=== PATIENT | male | born 1945 | race African-American/Black ===

== ENCOUNTER 2024-06-22 17:38 | Inpatient (IN) | payer MEDICARE, OTHER ==
[~2024-06-22] VITALS: Ht 180.3 cm; Wt 83.3 kg
[2024-06-22 18:53] LABS: BASOPHILS % (AUTO) 0.5 % (0.0-2.0); EOSINOPHILS # (AUTO) 0.2 K/uL (0.0-0.7); EOSINOPHILS % (AUTO) 3.3 % (0.0-6.0); HEMATOCRIT 41 % (39-51); HEMOGLOBIN 13.3 g/dL (13.5-17.5); LYMPHOCYTES % (AUTO) 19.3 % (20.0-44.0); MEAN CORPUSCULAR HEMOGLOBIN 27 PG (26.0-33.0); MEAN CORPUSCULAR HGB CONC 32 g/dl (31.0-36.0); MEAN CORPUSCULAR VOLUME 84 fL (80-96); MONOCYTES # (AUTO) 0.8 K/uL (0.1-1.30); NEUTROPHILS # (AUTO) 3.1 K/uL (1.8-8.9); NEUTROPHILS % (AUTO) 61.9 % (43.0-81.0); PLATELET COUNT (AUTO) 188 K/uL (150-450); RED BLOOD CELL COUNT(AUTO) 4.89 MIL/uL (4.5-6.0); RED CELL DISTRIBUTION WIDTH 16.3 % (11.5-15.0); WHITE BLOOD COUNT (AUTO) 5.1 K/uL (4.3-11.0)
[2024-06-22 19:08] LABS: ACETAMINOPHEN 0 ug/ml (10-30); ALANINE AMINOTRANSFERASE 22 U/L (12-78); ALBUMIN 3.5 g/dL (3.4-5.0); ALCOHOL, BLOOD < 3 mg/dL (0-10); ALKALINE PHOSPHATASE 103 U/L (46-116); ASPARTATE AMINOTRANSFERASE 7 U/L (15-37); BILIRUBIN,DIRECT 0.1 mg/dL (0.0-0.2); BILIRUBIN,TOTAL 0.3 mg/dL (0.2-1.0); CALCIUM, SERUM 9.1 mg/dL (8.5-10.1); CARBON DIOXIDE 28 mmol/L (21-32); CHLORIDE 102 mmol/L (98-107); CREATININE 1.5 mg/dL (0.6-1.3); GLUCOSE 108 mg/dL (74-106); POTASSIUM 4.2 mmol/L (3.5-5.1); SODIUM SERUM 138 mmol/L (136-145); TOTAL PROTEIN, SERUM 7.7 g/dL (6.4-8.2); UREA NITROGEN, BLOOD 24 mg/dL (7-18)
[2024-06-22] MEDS ORDERED: DOCU100C36 PO (19:33)
[2024-06-22] MEDS ORDERED: RISP0.5T65 PO (19:33)
[2024-06-22] MEDS ORDERED: METO50TA16 PO (19:33)
[2024-06-22] MEDS ORDERED: MAGN400O6 PO (19:33)
[2024-06-22] MEDS ORDERED: BISA10SU11 RC (19:33)
[2024-06-22] MEDS ORDERED: NA P133E RC (19:33)
[2024-06-22] MEDS ORDERED: ACET325T53 PO (19:33)
[2024-06-22 19:41] LABS: BAND % (MANUAL) 1 % (0.0-5.0); LYMPHOCYTES % (MANUAL) 23 % (16-48); MONOCYTES % (MANUAL) 3 % (0-11.0); NEUTROPHILS % (MANUAL) 73 (42-76)
[2024-06-22 19:42] LABS: PLATELET ESTIMATE ADEQUATE
[2024-06-22 19:55] LABS: APPEARANCE,URINE CLEAR (CLEAR); BILIRUBIN,URINE NEGATIVE (NEGATIVE); BLOOD, URINE 1+ Ery/uL (NEGATIVE); COLOR,URINE YELLOW (YELLOW); KETONES,URINE NEGATIVE (NEGATIVE); LEUKOCYTE ESTERASE ,URINE NEGATIVE (NEGATIVE); NITRITE, URINE NEGATIVE (NEGATIVE); PROTEIN,URINE NEGATIVE (NEGATIVE); UGLUCOSE NEGATIVE (NEGATIVE); UROBILINOGEN,URINE 0.2 EU/dL (0.2)
[2024-06-22 19:56] LABS: ADD URINE CULTURE NO; BACTERIA,URINE Few /HPF (None Seen); SQUAMOUS EPITHELIAL CELL,UR None Seen /HPF (None Seen); WBC,URINE 0-2 /HPF (0-3)
[2024-06-22 20:17] LABS: AMPHETAMINE, URINE NEGATIVE (NEGATIVE); BARBITURATE, URINE NEGATIVE (NEGATIVE); BENZODIAZEPINE, URINE NEGATIVE (NEGATIVE); CANNABINOID, URINE NEGATIVE (NEGATIVE); COCCAINE, URINE NEGATIVE (NEGATIVE); OPIATE, URINE NEGATIVE (NEGATIVE); PHENCYCLIDINE SCREEN,URINE NEGATIVE (NEGATIVE)
[2024-06-22] MEDS: METOPROLOL TARTRATE 50 MG TABLET PO ONE (20:28)
[2024-06-22] MEDS ORDERED: ONDANSETRON HCL/PF 4 MG/2 ML VIAL IVP PRN (21:00)
[2024-06-22] MEDS ORDERED: Z GUARD REMEDY 4 OZ OINT TP PRN (21:00)
[2024-06-22] MEDS ORDERED: MAG HYDROX/AL HYDROX/SIMETH 30 ML UDC PO PRN (21:00)
[2024-06-22] MEDS ORDERED: MAGNESIUM HYDROXIDE 30 ML UDC PO PRN (21:00)
[2024-06-22] MEDS ORDERED: IV NS 0.9% 1,000 ML IV ONE (21:00)
[2024-06-22] MEDS ORDERED: ACETAMINOPHEN 325 MG TABLET PO PRN (21:00)
[2024-06-22] MEDS ORDERED: BISACODYL SUPP (10 MG) 10 MG/SUPP.RECT SUPP.RECT RC PRN (22:00)
[2024-06-22] MEDS ORDERED: hydrALAZINE HCL IV 20 MG VIAL IV PRN (22:00)
[2024-06-22 22:50] VITALS: BP 203/86; TEMP 98.6; O2SAT 100
[2024-06-23] MEDS: CLONIDINE HCL 0.1 MG TABLET PO ONE (00:52)
[2024-06-23 06:34] VITALS: BP 166/82; O2SAT 98
[2024-06-23 06:56] LABS: BASOPHILS % (AUTO) 0.4 % (0.0-2.0); EOSINOPHILS # (AUTO) 0.2 K/uL (0.0-0.7); EOSINOPHILS % (AUTO) 3.7 % (0.0-6.0); HEMATOCRIT 39 % (39-51); HEMOGLOBIN 12.5 g/dL (13.5-17.5); LYMPHOCYTES # (AUTO) 1.1 K/uL (0.8-4.8); MEAN CORPUSCULAR HEMOGLOBIN 27 PG (26.0-33.0); MEAN CORPUSCULAR HGB CONC 32 g/dl (31.0-36.0); MEAN CORPUSCULAR VOLUME 85 fL (80-96); MONOCYTES # (AUTO) 0.8 K/uL (0.1-1.30); MONOCYTES % (AUTO) 17.6 % (2.0-12.0); NEUTROPHILS # (AUTO) 2.5 K/uL (1.8-8.9); NEUTROPHILS % (AUTO) 54.3 % (43.0-81.0); PLATELET COUNT (AUTO) 189 K/uL (150-450); RED BLOOD CELL COUNT(AUTO) 4.61 MIL/uL (4.5-6.0); RED CELL DISTRIBUTION WIDTH 15.7 % (11.5-15.0); WHITE BLOOD COUNT (AUTO) 4.7 K/uL (4.3-11.0)
[2024-06-23 07:42] LABS: CALCIUM, SERUM 8.9 mg/dL (8.5-10.1); CARBON DIOXIDE 25 mmol/L (21-32); CHLORIDE 102 mmol/L (98-107); CREATININE 1.3 mg/dL (0.6-1.3); GLUCOSE 88 mg/dL (74-106); MAGNESIUM 2.1 mg/dL (1.8-2.4); PHOSPHORUS 3.8 mg/dL (2.5-4.9); POTASSIUM 4.1 mmol/L (3.5-5.1); SODIUM SERUM 138 mmol/L (136-145); UREA NITROGEN, BLOOD 21 mg/dL (7-18)
[2024-06-23] MEDS ORDERED: CLONIDINE HCL 0.1 MG TABLET PO PRN (08:30)
[2024-06-23 09:47] VITALS: BP 166/82
[2024-06-23] MEDS: DOCUSATE SODIUM 100 MG CAPSULE PO SCH (09:47)
[2024-06-23] MEDS: METOPROLOL TARTRATE 50 MG TABLET PO SCH (09:47)
[2024-06-23] MEDS ORDERED: ALLA266C2 TP (17:30)
[2024-06-23] MEDS ORDERED: ONDA-97 PO (17:30)
[2024-06-23] MEDS ORDERED: CLON0.2T PO (17:30)
[2024-06-23] MEDS ORDERED: MAG30ORA PO (17:30)
[2024-06-23] MEDS ORDERED: risperiDONE 0.25 MG TABLET PO SCH (22:00)
== END 2024-06-23 16:30 | DRG 682 ==
LOC: ER 17:40 → MED 22:12
DX: N17.9 Acute kidney failure, unspecified (principal); G93.41 Metabolic encephalopathy; F20.9 Schizophrenia, unspecified; G47.00 Insomnia, unspecified; I12.9 Hypertensive chronic kidney disease with stage 1 through stage 4 chronic kidney disease, or unspecified chronic kidney disease; N18.9 Chronic kidney disease, unspecified; Z53.29 Procedure and treatment not carried out because of patient's decision for other reasons; R53.1 Weakness; Z79.899 Other long term (current) drug therapy
CPT/HCPCS: 36415; 80048-TC; 80076-TC; 81001; 83735-TC; 84100-TC; 85025-TC; 97112-TC; 97116-TC; 97530-TC; 98960; G0378; G0480

== ENCOUNTER 2024-06-23 16:56 | Inpatient (IN) | payer MEDICARE, OTHER ==
[~2024-06-23] VITALS: Ht 180.3 cm; Wt 83.3 kg
[~2024-06-23 16:56] MED LIST: ACET325T53 PO; BISA10SU11 RC; DOCU100C36 PO; MAGN400O6 PO; METO50TA16 PO; NA P133E RC; RISP0.5T65 PO
[2024-06-23 17:00] VITALS: BP 165/83; TEMP 98; O2SAT 98
[2024-06-23] MEDS ORDERED: MAG30ORA PO (17:30)
[2024-06-23] MEDS ORDERED: TEMAZEPAM 7.5 MG CAPSULE PO PRN ×2 (17:30→22:00)
[2024-06-23] MEDS ORDERED: LORAZEPAM 0.5 MG TABLET PO PRN ×2 (17:30)
[2024-06-23] MEDS ORDERED: ONDA-97 PO (17:30)
[2024-06-23] MEDS ORDERED: QUETIAPINE FUMARATE 25 MG TABLET PO PRN (17:30)
[2024-06-23] MEDS ORDERED: ALLA266C2 TP (17:30)
[2024-06-23] MEDS ORDERED: MAGNESIUM HYDROXIDE 30 ML UDC PO PRN ×2 (17:30→18:00)
[2024-06-23] MEDS ORDERED: MAG HYDROX/AL HYDROX/SIMETH 30 ML UDC PO PRN ×2 (17:30→18:00)
[2024-06-23] MEDS ORDERED: CLON0.2T PO (17:30)
[2024-06-23] MEDS ORDERED: ACETAMINOPHEN 325 MG TABLET PO PRN ×2 (17:30→18:00)
[2024-06-23] MEDS ORDERED: BISACODYL SUPP (10 MG) 10 MG/SUPP.RECT SUPP.RECT RC PRN (18:00)
[2024-06-23] MEDS ORDERED: ONDANSETRON 4 MG TAB.RAPDIS PO PRN (18:00)
[2024-06-23] MEDS: METOPROLOL TARTRATE 50 MG TABLET PO SCH (18:23)
[2024-06-23] MEDS: DOCUSATE SODIUM 100 MG CAPSULE PO SCH (18:24)
[2024-06-23] MEDS: BLOOD SUGAR DIAGNOSTIC 1 EACH STRIP IN ONE (18:24)
[2024-06-24 07:48] LABS: CHOLESTEROL 130 mg/dL (<200); HDL CHOLESTEROL 54 mg/dL (40-60); LDL 64 mg/dL (0-99); TRIGLYCERIDES 61 mg/dL (30-150)
[2024-06-24 08:00] VITALS: BP 187/79; TEMP 98; O2SAT 98
[2024-06-24 08:01] LABS: ALANINE AMINOTRANSFERASE 18 U/L (12-78); ALBUMIN 3.4 g/dL (3.4-5.0); ALKALINE PHOSPHATASE 96 U/L (46-116); ASPARTATE AMINOTRANSFERASE 10 U/L (15-37); BILIRUBIN,TOTAL 0.5 mg/dL (0.2-1.0); CALCIUM, SERUM 9.3 mg/dL (8.5-10.1); CARBON DIOXIDE 27 mmol/L (21-32); CHLORIDE 100 mmol/L (98-107); CREATININE 1.3 mg/dL (0.6-1.3); GLUCOSE 90 mg/dL (74-106); SODIUM SERUM 135 mmol/L (136-145); TOTAL PROTEIN, SERUM 7.3 g/dL (6.4-8.2); UREA NITROGEN, BLOOD 23 mg/dL (7-18)
[2024-06-24 11:34] LABS: THYROID STIMULATING HORMONE 2.16 uIU/mL (0.358-3.74)
[2024-06-24] MEDS: AMLODIPINE BESYLATE 2.5 MG TABLET PO SCH (11:43)
[2024-06-24 19:12] LABS: AMPHETAMINE, URINE NEGATIVE (NEGATIVE); BARBITURATE, URINE NEGATIVE (NEGATIVE); BENZODIAZEPINE, URINE NEGATIVE (NEGATIVE); CANNABINOID, URINE NEGATIVE (NEGATIVE); COCCAINE, URINE NEGATIVE (NEGATIVE); OPIATE, URINE NEGATIVE (NEGATIVE); PHENCYCLIDINE SCREEN,URINE NEGATIVE (NEGATIVE)
[2024-06-24 20:24] VITALS: BP 140/76; TEMP 98; O2SAT 98
[2024-06-24] MEDS: risperiDONE 1 MG TABLET PO SCH (23:06)
[2024-06-25 08:00] VITALS: BP 149/93; TEMP 98; O2SAT 100
[2024-06-25] MEDS ORDERED: LACTULOSE 10 G/15 ML UDC (PYXIS) PO PRN (10:00)
[2024-06-25 16:00] VITALS: BP 154/91; TEMP 98; O2SAT 98
[2024-06-26 08:00] VITALS: BP 156/98; TEMP 97.8; O2SAT 100
[2024-06-26] MEDS: CLONIDINE HCL 0.1 MG TABLET PO PRN (09:24)
[2024-06-26 16:10] VITALS: BP 138/66; TEMP 97.8; O2SAT 100
[2024-06-26 21:09] VITALS: BP 142/92; TEMP 98.2; O2SAT 99
[2024-06-27] MEDS: AMLODIPINE BESYLATE 2.5 MG TABLET PO ONE (15:44)
[2024-06-27 16:00] VITALS: BP 162/101; TEMP 97.9; O2SAT 98
[2024-06-27 21:10] VITALS: TEMP 97.9; O2SAT 100
[2024-06-28 08:00] VITALS: BP 158/66; TEMP 97.5; O2SAT 98
[2024-06-28 08:47] VITALS: BP 158/66; TEMP 97.5; O2SAT 98
[2024-06-28 16:00] VITALS: BP 184/106; TEMP 97.5; O2SAT 99
[2024-06-28 20:00] VITALS: BP 142/72; TEMP 94.6; O2SAT 100
[2024-06-29 08:00] VITALS: BP 166/84; TEMP 98.1; O2SAT 100
[2024-06-29 15:47] VITALS: BP 165/92; TEMP 97.9; O2SAT 97
[2024-06-29 20:00] VITALS: BP 155/66; TEMP 97.8; O2SAT 96
[2024-06-29 22:32] VITALS: BP 146/68; TEMP 98; O2SAT 97
[2024-06-30 08:00] VITALS: BP 168/70; TEMP 98; O2SAT 98
[2024-06-30 09:57] VITALS: BP 144/70
[2024-06-30 16:00] VITALS: BP 161/71; TEMP 98; O2SAT 99
[2024-06-30 17:30] VITALS: BP 185/115
[2024-06-30 18:54] VITALS: BP 113/66
[2024-06-30 20:00] VITALS: BP 138/82; TEMP 98.2; O2SAT 99
[2024-06-30] MEDS: risperiDONE 0.25 MG TABLET PO SCH (21:20)
[2024-07-01 08:00] VITALS: BP 155/72; TEMP 97.8; O2SAT 99
[2024-07-01] MEDS: risperiDONE 0.25 MG TABLET PO SCH (09:30)
[2024-07-01] MEDS: AMLODIPINE BESYLATE 2.5 MG TABLET PO SCH (09:31)
[2024-07-01 16:00] VITALS: BP 150/74; TEMP 98; O2SAT 99
[2024-07-01 20:00] VITALS: BP 163/98; TEMP 97.8; O2SAT 100
[2024-07-01 22:30] VITALS: BP 145/75; TEMP 98.1
[2024-07-02 08:00] VITALS: BP 154/92; TEMP 98.4; O2SAT 99
[2024-07-02 16:00] VITALS: BP 144/73; TEMP 97.5; O2SAT 100
[2024-07-02 20:35] VITALS: BP 143/82; TEMP 98.2; O2SAT 100
[2024-07-03 08:19] VITALS: BP 155/70; TEMP 97.6; O2SAT 99
[2024-07-03 09:00] VITALS: BP 155/70; TEMP 97.6; O2SAT 99
[2024-07-03 16:05] VITALS: BP 130/59; TEMP 98; O2SAT 97
[2024-07-03 20:18] VITALS: BP 153/74; TEMP 98; O2SAT 100
[2024-07-04 08:25] VITALS: BP 160/98; TEMP 98.7; O2SAT 100
[2024-07-04 16:00] VITALS: BP 110/56; TEMP 98.7; O2SAT 98
[2024-07-04 20:00] VITALS: BP 157/66; TEMP 98.7; O2SAT 100
[2024-07-05 08:00] VITALS: BP 144/87; TEMP 97.8; O2SAT 99
[2024-07-05] MEDS: AMLODIPINE BESYLATE 2.5 MG TABLET PO SCH (09:07)
[2024-07-05 16:00] VITALS: BP 146/71; TEMP 98.7; O2SAT 100
[2024-07-05 20:00] VITALS: BP 144/69; TEMP 98.2; O2SAT 98
[2024-07-05] MEDS: risperiDONE 0.25 MG TABLET PO SCH (21:22)
[2024-07-06 08:00] VITALS: BP 165/77; TEMP 98.6; O2SAT 98
[2024-07-06 16:20] VITALS: BP 166/74; TEMP 98.2; O2SAT 99
[2024-07-06 20:00] VITALS: BP 150/80; TEMP 98.2; O2SAT 97
[2024-07-07 08:00] VITALS: BP 165/78; TEMP 98.1; O2SAT 98
[2024-07-07 09:57] VITALS: BP 165/78
[2024-07-07] MEDS: VALSARTAN 80 MG TABLET PO SCH (09:57)
== END 2024-07-07 14:00 | DRG 885 ==
LOC: GPS 16:56
PROVIDERS: ADMIT Psychiatry & Neurology Psychosomatic Medicine; ATTEND Nurse Practitioner Family
PROC: 0HBRXZZ Excision of Toe Nail, External Approach (ICD-10-PCS; principal; 2024-07-07)
DX: F39 Unspecified mood [affective] disorder (principal); N18.9 Chronic kidney disease, unspecified; G92.8 Other toxic encephalopathy; E87.1 Hypo-osmolality and hyponatremia; F03.93 Unspecified dementia, unspecified severity, with mood disturbance; F29 Unspecified psychosis not due to a substance or known physiological condition; F20.9 Schizophrenia, unspecified; I16.0 Hypertensive urgency; I12.9 Hypertensive chronic kidney disease with stage 1 through stage 4 chronic kidney disease, or unspecified chronic kidney disease; D64.9 Anemia, unspecified; L60.2 Onychogryphosis; L60.3 Nail dystrophy; M89.8X9 Other specified disorders of bone, unspecified site; Z73.6 Limitation of activities due to disability; Z20.822 Contact with and (suspected) exposure to COVID-19; B35.1 Tinea unguium; B07.0 Plantar wart; L98.8 Other specified disorders of the skin and subcutaneous tissue
CPT/HCPCS: 36415; 80053-TC; 80061-TC; 82140-TC; 82607-TC; 84443-TC

== ENCOUNTER 2024-12-31 01:59 | Inpatient (IN) | payer MEDICARE, OTHER ==
[~2024-12-31] VITALS: Ht 188 cm; Wt 95.3 kg
[~2024-12-31 01:59] MED LIST changes: +ALLA266C2 TP; +CLON0.2T PO; +MAG30ORA PO; -NA P133E RC; +ONDA-97 PO
[2024-12-31 03:39] LABS: BASOPHILS % (AUTO) 0.4 % (0.0-2.0); EOSINOPHILS # (AUTO) 0.2 K/uL (0.0-0.7); EOSINOPHILS % (AUTO) 4.4 % (0.0-6.0); HEMATOCRIT 43 % (39-51); HEMOGLOBIN 13.7 g/dL (13.5-17.5); LYMPHOCYTES # (AUTO) 1.1 K/uL (0.8-4.8); LYMPHOCYTES % (AUTO) 27.9 % (20.0-44.0); MEAN CORPUSCULAR HEMOGLOBIN 27 PG (26.0-33.0); MEAN CORPUSCULAR HGB CONC 32 g/dl (31.0-36.0); MEAN CORPUSCULAR VOLUME 85 fL (80-96); MONOCYTES # (AUTO) 0.7 K/uL (0.1-1.30); MONOCYTES % (AUTO) 16.8 % (2.0-12.0); NEUTROPHILS % (AUTO) 50.5 % (43.0-81.0); PLATELET COUNT (AUTO) 163 K/uL (150-450); RED BLOOD CELL COUNT(AUTO) 5.05 MIL/uL (4.5-6.0); RED CELL DISTRIBUTION WIDTH 15.6 % (11.5-15.0)
[2024-12-31 03:50] LABS: ALANINE AMINOTRANSFERASE 35 U/L (12-78); ALBUMIN 3.4 g/dL (3.4-5.0); ALCOHOL, BLOOD < 3 mg/dL (0-10); ALKALINE PHOSPHATASE 98 U/L (46-116); ASPARTATE AMINOTRANSFERASE 11 U/L (15-37); BILIRUBIN,DIRECT 0.1 mg/dL (0.0-0.2); BILIRUBIN,TOTAL 0.3 mg/dL (0.2-1.0); CALCIUM, SERUM 8.9 mg/dL (8.5-10.1); CARBON DIOXIDE 27 mmol/L (21-32); CHLORIDE 104 mmol/L (98-107); CREATININE 1.4 mg/dL (0.6-1.3); GLUCOSE 122 mg/dL (74-106); POTASSIUM 3.9 mmol/L (3.5-5.1); SODIUM SERUM 137 mmol/L (136-145); TOTAL PROTEIN, SERUM 7.7 g/dL (6.4-8.2); UREA NITROGEN, BLOOD 21 mg/dL (7-18)
[2024-12-31 03:52] LABS: ACETAMINOPHEN <10 ug/ml (10-30); SALICYLATE 1.7 mg/dL (2.8-20.0)
[2024-12-31 04:02] LABS: APPEARANCE,URINE CLEAR (CLEAR); BILIRUBIN,URINE NEGATIVE (NEGATIVE); BLOOD, URINE TRACE-INTA Ery/uL (NEGATIVE); COLOR,URINE YELLOW (YELLOW); KETONES,URINE NEGATIVE (NEGATIVE); LEUKOCYTE ESTERASE ,URINE NEGATIVE (NEGATIVE); NITRITE, URINE NEGATIVE (NEGATIVE); PROTEIN,URINE NEGATIVE (NEGATIVE); UGLUCOSE NEGATIVE (NEGATIVE); UROBILINOGEN,URINE 0.2 EU/dL (0.2)
[2024-12-31 04:05] LABS: ADD URINE CULTURE NO; BACTERIA,URINE Rare /HPF (None Seen); SQUAMOUS EPITHELIAL CELL,UR Few /HPF (None Seen); WBC,URINE 0-2 /HPF (0-3)
[2024-12-31 04:31] LABS: AMPHETAMINE, URINE NEGATIVE (NEGATIVE); BARBITURATE, URINE NEGATIVE (NEGATIVE); BENZODIAZEPINE, URINE NEGATIVE (NEGATIVE); CANNABINOID, URINE NEGATIVE (NEGATIVE); COCCAINE, URINE NEGATIVE (NEGATIVE); OPIATE, URINE NEGATIVE (NEGATIVE); PHENCYCLIDINE SCREEN,URINE NEGATIVE (NEGATIVE)
[2024-12-31 08:00] VITALS: BP 168/101; TEMP 98; O2SAT 98
[2024-12-31] MEDS ORDERED: MAGNESIUM HYDROXIDE 30 ML UDC PO PRN (08:30)
[2024-12-31] MEDS ORDERED: ACETAMINOPHEN 325 MG TABLET PO PRN (08:30)
[2024-12-31] MEDS ORDERED: MAG HYDROX/AL HYDROX/SIMETH 30 ML UDC PO PRN (08:30)
[2024-12-31] MEDS ORDERED: AMLO-213 PO (08:50)
[2024-12-31] MEDS ORDERED: FERR325T24 PO (08:59)
[2024-12-31] MEDS ORDERED: ZOLPIDEM TARTRATE 5 MG TABLET PO PRN (09:00)
[2024-12-31] MEDS ORDERED: QUETIAPINE FUMARATE 25 MG TABLET PO PRN (09:00)
[2024-12-31] MEDS ORDERED: NA P133E RC (09:09)
[2024-12-31] MEDS ORDERED: LACT10SO29 PO (09:11)
[2024-12-31] MEDS: BLOOD SUGAR DIAGNOSTIC 1 EACH STRIP IN ONE (10:05)
[2024-12-31 16:00] VITALS: BP 142/81; TEMP 98.2; O2SAT 99
[2024-12-31] MEDS: busPIRone 5 MG TABLET PO SCH (17:42)
[2024-12-31] MEDS: DIVALPROEX SODIUM 125 MG TABLET.DR PO SCH (17:42)
[2024-12-31] MEDS: OLANZAPINE 2.5 MG TABLET PO SCH (17:42)
[2024-12-31 20:00] VITALS: BP 154/74; TEMP 98.2; O2SAT 95
[2024-12-31 20:58] VITALS: BP 154/74; TEMP 98.2; O2SAT 95
[2025-01-01 12:00] LABS: CHOLESTEROL 148 mg/dL (<200); HDL CHOLESTEROL 53 mg/dL (40-60); LDL 82 mg/dL (0-99); TRIGLYCERIDES 73 mg/dL (30-150)
[2025-01-01 12:02] LABS: ALBUMIN 3.4 g/dL (3.4-5.0); BILIRUBIN,TOTAL 0.5 mg/dL (0.2-1.0); CALCIUM, SERUM 9.3 mg/dL (8.5-10.1); CREATININE 1.3 mg/dL (0.6-1.3); TOTAL PROTEIN, SERUM 7.4 g/dL (6.4-8.2)
[2025-01-01 12:21] LABS: CREATININE 1.3 mg/dL (0.6-1.3)
[2025-01-01 16:26] VITALS: BP 153/79; TEMP 98.2; O2SAT 99
[2025-01-01 20:23] VITALS: BP 158/82; TEMP 98.2; O2SAT 97
[2025-01-02 08:00] VITALS: BP 148/94; TEMP 97.7; O2SAT 98
[2025-01-02 16:00] VITALS: BP 161/69; TEMP 98.1; O2SAT 98
[2025-01-02 20:04] VITALS: BP 135/118; TEMP 98.9; O2SAT 100
[2025-01-03 08:00] VITALS: BP 126/65; TEMP 97.9; O2SAT 96
[2025-01-03] MEDS ORDERED: LACTULOSE 10 G/15 ML UDC (PYXIS) PO SCH (13:00)
[2025-01-03] MEDS ORDERED: BISACODYL SUPP (10 MG) 10 MG/SUPP.RECT SUPP.RECT RC PRN (13:00)
[2025-01-03] MEDS: DIVALPROEX SODIUM 125 MG TABLET.DR PO SCH (14:30)
[2025-01-03 16:00] VITALS: BP 162/87; TEMP 98; O2SAT 99
[2025-01-03] MEDS: METOPROLOL TARTRATE 50 MG TABLET PO SCH (17:37)
[2025-01-03 20:20] VITALS: BP 130/62; TEMP 98; O2SAT 96
[2025-01-04 08:00] VITALS: BP 160/94; TEMP 98.8; O2SAT 97
[2025-01-04] MEDS: DOCUSATE SODIUM 100 MG CAPSULE PO SCH (08:45)
[2025-01-04] MEDS: FERROUS SULFATE (325 MG) 325 MG/TAB TABLET PO SCH (08:45)
[2025-01-04] MEDS: CLONIDINE HCL 0.1 MG TABLET PO PRN (08:46)
[2025-01-04] MEDS: AMLODIPINE BESYLATE 10 MG TABLET PO SCH (08:46)
[2025-01-04 16:00] VITALS: BP 115/64; TEMP 98.8; O2SAT 98
[2025-01-04 19:59] VITALS: BP 137/74; TEMP 98.6; O2SAT 100
[2025-01-04] MEDS: TRAZODONE 50 MG TABLET PO SCH (21:16)
[2025-01-05 08:00] VITALS: BP 128/89; TEMP 97.6; O2SAT 98
[2025-01-05 16:00] VITALS: BP 130/81; TEMP 97.7; O2SAT 98
[2025-01-05 20:00] VITALS: BP 132/70; TEMP 97.9; O2SAT 97
[2025-01-06 08:55] VITALS: BP 150/80; TEMP 97.6; O2SAT 99
[2025-01-06 16:34] VITALS: BP 146/68; TEMP 98.2; O2SAT 97
[2025-01-06 20:15] VITALS: BP 131/50; TEMP 98.1; O2SAT 98
[2025-01-07 08:00] VITALS: BP 137/85; TEMP 98.1; O2SAT 99
[2025-01-07 16:00] VITALS: BP 128/71; TEMP 98.4; O2SAT 100
[2025-01-07 20:50] VITALS: BP 148/65; TEMP 98.3; O2SAT 98
[2025-01-08 08:00] VITALS: BP 133/73; TEMP 98.4; O2SAT 98
[2025-01-08 16:00] VITALS: BP 147/60; TEMP 98.8; O2SAT 96
[2025-01-08 21:43] VITALS: BP 139/62; TEMP 98.4; O2SAT 96
[2025-01-09 08:00] VITALS: BP 153/90; TEMP 98.6; O2SAT 97
[2025-01-09 15:49] VITALS: BP 148/63; TEMP 98.1; O2SAT 96
[2025-01-09 20:27] VITALS: BP 136/70; TEMP 98.1; O2SAT 95
[2025-01-10 08:00] VITALS: BP 143/75; TEMP 97.7; O2SAT 96
[2025-01-10] MEDS: DIVALPROEX SODIUM 250 MG TABLET.DR PO SCH (15:45)
[2025-01-10 16:02] VITALS: BP 147/76; TEMP 98.1; O2SAT 97
[2025-01-10 19:56] VITALS: BP 158/78; TEMP 98; O2SAT 100
[2025-01-11 08:00] VITALS: BP 149/76; TEMP 98.6; O2SAT 97
[2025-01-11 15:48] VITALS: BP 140/80; TEMP 98.4; O2SAT 99
[2025-01-11 20:53] VITALS: BP 130/57; TEMP 98; O2SAT 98
[2025-01-11 21:03] VITALS: BP 130/57; TEMP 98.1; O2SAT 98
[2025-01-12 08:00] VITALS: BP 160/82; TEMP 98.7; O2SAT 99
[2025-01-12 16:00] VITALS: BP 114/63; TEMP 98; O2SAT 100
[2025-01-12 20:00] VITALS: BP 130/57; TEMP 98.2; O2SAT 100
[2025-01-13 08:00] VITALS: BP 144/88; TEMP 98; O2SAT 98
[2025-01-13 16:00] VITALS: BP 138/72; TEMP 98.6; O2SAT 100
[2025-01-13 20:00] VITALS: BP 117/64; TEMP 98.1; O2SAT 98
[2025-01-14 08:00] VITALS: BP 154/84; TEMP 97.8; O2SAT 98
[2025-01-14 16:00] VITALS: BP 126/66; TEMP 98.7; O2SAT 100
[2025-01-14 20:25] VITALS: BP 125/65; TEMP 98; O2SAT 100
[2025-01-15 08:00] VITALS: BP 166/88; TEMP 98; O2SAT 96
[2025-01-15 16:00] VITALS: BP 127/85; TEMP 97.9; O2SAT 97
[2025-01-15 20:34] VITALS: BP 152/70; TEMP 98; O2SAT 100
[2025-01-16 08:23] VITALS: BP 163/98; TEMP 97.7; O2SAT 99
[2025-01-16 10:00] VITALS: BP 163/98
== END 2025-01-16 13:00 | DRG 885 ==
LOC: ER 02:06 → GPS 07:57
PROVIDERS: ADMIT Psychiatry & Neurology Psychiatry; ATTEND Student in an Organized Health Care Education/Training Program
DX: F29 Unspecified psychosis not due to a substance or known physiological condition (principal); N18.9 Chronic kidney disease, unspecified; N17.0 Acute kidney failure with tubular necrosis; G93.41 Metabolic encephalopathy; F03.92 Unspecified dementia, unspecified severity, with psychotic disturbance; F03.918 Unspecified dementia, unspecified severity, with other behavioral disturbance; I12.9 Hypertensive chronic kidney disease with stage 1 through stage 4 chronic kidney disease, or unspecified chronic kidney disease; F20.9 Schizophrenia, unspecified; D63.1 Anemia in chronic kidney disease; D70.9 Neutropenia, unspecified; G47.00 Insomnia, unspecified; R73.03 Prediabetes; Z79.899 Other long term (current) drug therapy; Z73.6 Limitation of activities due to disability; R53.1 Weakness; E86.1 Hypovolemia
CPT/HCPCS: 36415; 80048-TC; 80053-TC; 80061-TC; 80076-TC; 80164-TC; 81001; 82565-TC; 82962-TC; 84443-TC; 85025-TC; 97110-TC; 97116-TC; 97530-TC; G0480